=== PATIENT | female | born 1990 | race Caucasian/White ===

== ENCOUNTER 2023-07-30 12:09 | Emergency (ER) | payer OTHER ==
[~2023-07-30] VITALS: Ht 162.6 cm; Wt 74.8 kg
[2023-07-30 14:59] VITALS: BP 132/81; TEMP 98; O2SAT 100
== END 2023-07-30 14:59 | disposition home or self-care (01) ==
LOC: ER 12:13
DX: S02.2XXA Fracture of nasal bones, initial encounter for closed fracture (principal); Z60.2 Problems related to living alone; Y08.89XA Assault by other specified means, initial encounter; Y93.89 Activity, other specified; Y92.811 Bus as the place of occurrence of the external cause; Y99.8 Other external cause status
CPT/HCPCS: 70486-TC